=== PATIENT | male | born 1950 | race Caucasian/White ===

== ENCOUNTER 2016-05-25 00:40 | Observation (INO) | payer BC ==
[~2016-05-25] VITALS: Ht 175.3 cm; Wt 108.6 kg
[2016-05-25 01:24] LABS: BASOPHILS % (AUTO) 0 % (0-2); EOSINOPHILS # (AUTO) 0.3 10^3uL; EOSINOPHILS % (AUTO) 2 % (0-4); MEAN CORPUSCULAR HEMOGLOBIN 29.2 PG (26.0-34.0); MEAN CORPUSCULAR VOLUME 86 FL (80-100); MEAN PLATELET VOLUME 9.9 FL (6.0-9.5); MONOCYTES # (AUTO) 1.4 X10^3; MONOCYTES % (AUTO) 11 % (3-11); NEUTROPHILS # (AUTO) 5.5 X10^3; NEUTROPHILS % (AUTO) 45 % (51-67); PLATELET COUNT 276 10^3uL (150-450); WHITE BLOOD COUNT 12.23 10^3uL (4.0-11.0)
[2016-05-25 01:40] LABS: ALKALINE PHOSPHATASE 110 U/L (38-126); ANION GAP 19.2 MEQ/L (3-15); BUN/CREATININE RATIO 24 (10-20); CALCULATED IONIZED CALCIUM 4.1 mg/dL (3.8-4.6); TOTAL PROTEIN 7.1 g/dL (6.4-8.5)
[2016-05-25] MEDS ORDERED: morphine INJ 4 MG/ML 1 ML SYRINGE IV PRN (02:55)
[2016-05-25] MEDS ORDERED: ONDANSETRON 2 MG/ML (Z0FRAN) 2 ML VIAL IV PRN (02:55)
[2016-05-25] MEDS ORDERED: NS W/KCL 20 MEQ/L 1,000 ML IV SCH (02:55)
[2016-05-25] MEDS ORDERED: ACETAMINOPHEN 325 MG TAB (TYLENOL) PO PRN (02:55)
--- NOTE | 2016-05-25 03:15 | NUR ---
Pt arrives to 306 via cart from ED. Ambulates to weight chair and bed with stand-by assist. Denies feeling dizzy or lightheaded. Denies pain. BP 136/92. Resp even and non labored on RA. See admission assessment for further details.
[2016-05-25 03:29] VITALS: BP 136/92
[2016-05-25 03:31] VITALS: BP 136/92
[2016-05-25] MEDS ORDERED: MTP50T PO (03:44)
[2016-05-25] MEDS ORDERED: HCT25T PO (03:44)
[2016-05-25] MEDS ORDERED: ASPI-860 PO (03:44)
[2016-05-25] MEDS ORDERED: LOSA100T8 PO (03:44)
--- NOTE | 2016-05-25 04:18 | NUR ---
Pt has small, loose, sravani red bloody stool.
--- NOTE | 2016-05-25 04:34 | History and Physical (E) ---
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 Approximately 10 days ago the patient had a colonoscopy with at least 2 if not 3 polyps removed. The patient had a normal bowel movement this morning. The patient says had at least one if not 2 diarrheal bright red blood per rectum stools. The patient had onset of lightheadedness as if he were to pass out. EMS was activated and the patient was transferred to the closest ER. In the emergency department the patients vital signs demonstrated a systolic blood pressure 103. The patients Hemoccult was positive from below. The patient was not significant anemic at this time. Initial hemoglobin was 14.8, repeat was 13.9. At this time the patient is to be admitted for observation regarding a probable lower GI bleed from a previous polypectomy. The timeframe we favor this as the most likely source of bleeding. Past medical history: Hypertension, colonic polyps Past surgical history: Permanent pacemaker approximately 14 years ago, polypectomy Medications: Unknown at this time Allergies: Unknown at this time Social history: Lives in [place], is , no tobacco or alcohol, over the road development professional Family history: Mother has colon cancer Review of systems: The patient denies headache, denies change in vision, denies difficulty swallowing, denies neck or jaw pain, denies any chest pain, denies PND, denies orthopnea, denies cough, is not short of breath, has mild abdominal pain, lower quadrants bilaterally, no nausea or vomiting, blood in stools as noted above, no focal neurological deficits, no skin rashes, 10 point review of systems is otherwise negative except for described above Physical examination: Vital signs: Temperature 97.8, pulse 63, respiratory rate 18, blood pressure 139 /92 Well-developed well-nourished white male hard of hearing, mild distress Sclerae nonicteric not pale, extraocular muscles are intact Neck is supple with easy range of motion Lungs are diminished without wheezes or rhonchi Heart is regular rate and rhythm no murmur Abdomen is mildly obese, bowel sounds are present, nontender to palpation per nursing Extremities without edema Neurologic no focal deficits Lab: White count 12.3, hemoglobin 14.8, repeat 13.9, platelet counts 276,000, INR is 1, sodium 145, potassium 3.2, serum bicarbonate 25, BNP 24, creatinine 1, glucose is 172 Impression/plan 1. Lower GI bleed acute present on admission: Slightly from previous polypectomy. Its about the right timeframe. Differential diagnosis includes diverticular bleed, colon cancer, AV malformation, polyp bleed, internal hemorrhoids. Obviously the most likely cause is polyp bleed. IV fluids, repeat hemoglobin in the morning, no indication for an acute surgical consult yet, if bleeding were to worsen would consider a bleeding scan and/or surgical consultation. If bleeding were to continue, would need to get records [place] to better define the exact procedure performed. 2. Hypertension chronic present on admission: Hold antihypertensive medicines at this time 3. Hypokalemia acute present admission: Secondary to GI loss, replace and recheck 4. Hyperglycemia acute present admission: Consider this an acute reaction. Repeat chemistries in the morning. If continued elevated consider checking an A1c 5. DVT prophylaxis: SCD 6. Gastric prophylaxis: Proton pump inhibitor This patients an observation admission Allergies/Home Medications Allergies: Coded Allergies: No Known Drug Allergies (Unverified , 05/25/16) Reported Home Medications Scheduled Aspirin (Aspirin) 81 MG PO DAILY (Reported) Losartan/Hydrochlorothiazide (Losartan-HCTZ 100-25 mg Tab) 1 TAB PO DAILY ( Reported) Metoprolol Tartrate (Metoprolol Tartrate) 50 BID (Reported) Discontinued Medications Hydrochlorothiazide (Hctz) 25 MG PO DAILY (Reported) Discontinued Reason: Unknown Losartan Potassium (Losartan Potassium) 100 MG PO DAILY (Reported) Discontinued Reason: Unknown Copies to: End of Report . FRANCISCO BUTLER MD May 25, 2016 04:34 NEFTALI JOSE DO May 25, 2016 13:33
--- NOTE | 2016-05-25 04:40 | NUR ---
Dr. Ramon at bedside performing rectal exam with this nurse present.
[2016-05-25 06:03] LABS: BASOPHILS % (AUTO) 0 % (0-2); EOSINOPHILS % (AUTO) 0 % (0-4); LYMPHOCYTES # (AUTO) 1.2 X10^3; MEAN CORPUSCULAR HEMOGLOBIN 29.3 PG (26.0-34.0); MEAN CORPUSCULAR HGB CONC 33.6 g/dL (31.0-37.0); MEAN CORPUSCULAR VOLUME 87 FL (80-100); MEAN PLATELET VOLUME 9.8 FL (6.0-9.5); MONOCYTES # (AUTO) 0.5 X10^3; MONOCYTES % (AUTO) 5 % (3-11); NEUTROPHILS # (AUTO) 8.2 X10^3; NEUTROPHILS % (AUTO) 83 % (51-67); PLATELET COUNT 200 10^3uL (150-450); WHITE BLOOD COUNT 9.88 10^3uL (4.0-11.0)
[2016-05-25] MEDS: PANTOPRAZOLE 40 MG (PROTONIX) TAB PO SCH (06:09)
--- NOTE | 2016-05-25 06:11 | NUR ---
No further BMs, pt resting quietly. Denies pain.
[2016-05-25 06:26] LABS: ANION GAP 16.8 MEQ/L (3-15)
[2016-05-25 07:22] VITALS: BP 117/76
[2016-05-25] MEDS ORDERED: NS FLUSH 3 ML PRN IV (08:50)
[2016-05-25] MEDS ORDERED: NS FLUSH 10 ML PRN IV (08:50)
[2016-05-25] MEDS: NS FLUSH 3 ML DAILY IV SCH (09:00)
--- NOTE | 2016-05-25 09:02 | Progress Note (E) ---
Progress Note S: Awake and alert - feels ok this am, hungry- tolerates Clear liquid diet, His daughter will be checking with his doctor in [place] this am about the colonoscopy he had over a week ago and about the colon polyp biopsies, no abdominal pain no vomiting. No report of blood in stools since 4 am, hemoglobin this am 13.3 O: Vital Signs Date Time Temp Pulse Resp B/P Pulse Ox O2 Delivery O2 Flow Rate FiO2 05/25/16 07:22 97.9 54 18 117/76 95 Room air 05/25/16 03:10 1 I & O Past 24 hrs 05/25/16 07:00 Intake Total 369 ml Output Total 200 ml Balance 169 ml Intake Oral 100 ml IV Total 269 ml Output Urine Total 200 ml # Bowel Movements 2 Awake and alert in NAD, speech clear, in good spirits HEENT- PERRLA, EOMI Neck Supple Lungs are clear bilaterally, no wheezes Heart is regular rate and rhythm no murmur Abdomen is mildly obese, bowel sounds are present, nontender to palpation Extremities without edema Neurologic no focal deficits CBC BMP Last 24 Hrs 05/25/16 00:00 05/25/16 02:30 05/25/16 05:40 Laboratory Results Past 24 Hrs 05/25/16 00:00: Alanine Aminotransferase (ALT/SGPT) 50, Albumin 4.0, Albumin/Globulin Ratio 1.290, Alkaline Phosphatase 110, Anion Gap 19.2, Aspartate Amino Transf (AST/ SGOT) 24, BUN/Creatinine Ratio 24, Basophils # (Auto) 0.1, Basophils (%) (Auto) 0, Blood Urea Nitrogen 24, C-Reactive Protein < 0.50, Calcium Level 9.2, Calcium /Ionized Calcium Ratio 4.1, Calculated Osmolality 289, Carbon Dioxide Level 25, Chloride Level 104, Creatinine 1.02, Eosinophils # (Auto) 0.3, Eosinophils (%) ( Auto) 2, Estimat Glomerular Filtration Rate 89.0, Estimated GFR (Non- 73.5, Glucose Level 172, Hematocrit 43.50, Hemoglobin 14.8, Lymphocytes # (Auto) 5.0, Lymphocytes (%) (Auto) 41, Mean Corpuscular Hemoglobin 29.2, Mean Corpuscular Hemoglobin Concent 34.0, Mean Corpuscular Volume 86, Mean Platelet Volume 9.9, Monocytes # (Auto) 1.4, Monocytes (%) (Auto ) 11, Neutrophils # (Auto) 5.5, Neutrophils (%) (Auto) 45, Platelet Count 276, Potassium Level 3.2, Prothromb Time International Ratio 1.0, Prothrombin Time 11.6, Red Blood Count 5.07, Red Cell Distribution Width 13.5, Sodium Level 145, Total Bilirubin 0.5, Total Protein 7.1, White Blood Count 12.23 05/25/16 02:30: Hematocrit 41.80, Hemoglobin 13.9 05/25/16 02:40: Stool Occult Blood Positive 05/25/16 05:40: Anion Gap 16.8, BUN/Creatinine Ratio 31, Basophils # (Auto) 0.0, Basophils (%) ( Auto) 0, Blood Urea Nitrogen 26, Calcium Level 8.9, Carbon Dioxide Level 27, Chloride Level 107, Creatinine 0.85, Eosinophils # (Auto) 0.0, Eosinophils (%) ( Auto) 0, Estimat Glomerular Filtration Rate 109.8, Estimated GFR (Non- 90.8, Glucose Level 154, Hematocrit 39.60, Hemoglobin 13.3, Lymphocytes # (Auto) 1.2, Lymphocytes (%) (Auto) 12, Mean Corpuscular Hemoglobin 29.3, Mean Corpuscular Hemoglobin Concent 33.6, Mean Corpuscular Volume 87, Mean Platelet Volume 9.8, Monocytes # (Auto) 0.5, Monocytes (%) (Auto ) 5, Neutrophils # (Auto) 8.2, Neutrophils (%) (Auto) 83, Platelet Count 200, Potassium Level 3.8, Red Blood Count 4.54, Red Cell Distribution Width 13.5, Sodium Level 146, White Blood Count 9.88 Impression/plan 1.Lower GI bleed acute present on admission: previous polypectomy about a week ago. ? Internal hemorrhoids? Diverticular? HGB is stable at 13.3 2.Hypertension - was hypotensive on admit- his meds are on hold- Metoprolol , Losartan, HCTZ 3.Hypokalemia- improved with IV fluids. likely due to HCTZ- which in now on hold 4.Hyperglycemia acute present admission: Consider this an acute reaction. A1C pending this am. 5.DVT prophylaxis: SCD 6.Gastric prophylaxis: Proton pump inhibitor Celi Doshi PROGRAM OFFICER May 25, 2016 09:02 A1c 5. DVT prophylaxis: SCD 6. Gastric prophylaxis: Proton pump inhibitor Celi Doshi PROGRAM OFFICER May 25, 2016 09:02
[2016-05-25 11:10] VITALS: BP 132/91
[2016-05-25] MEDS ORDERED: LOSA1TAB70 PO (13:26)
[2016-05-25] MEDS ORDERED: DILT300T PO (13:28)
[2016-05-25] MEDS ORDERED: TADA20TA PO (13:28)
[2016-05-25] MEDS ORDERED: morphine INJ 2 MG/ML 1 ML SYRINGE IV PRN (13:40)
[2016-05-25 13:49] LABS: BASOPHILS % (AUTO) 0 % (0-2); EOSINOPHILS # (AUTO) 0.1 10^3uL; EOSINOPHILS % (AUTO) 1 % (0-4); LYMPHOCYTES # (AUTO) 1.9 X10^3; MEAN CORPUSCULAR HEMOGLOBIN 29.5 PG (26.0-34.0); MEAN CORPUSCULAR HGB CONC 33.7 g/dL (31.0-37.0); MEAN CORPUSCULAR VOLUME 87 FL (80-100); MEAN PLATELET VOLUME 9.6 FL (6.0-9.5); MONOCYTES # (AUTO) 0.5 X10^3; MONOCYTES % (AUTO) 7 % (3-11); NEUTROPHILS # (AUTO) 4.7 X10^3; NEUTROPHILS % (AUTO) 66 % (51-67); PLATELET COUNT 176 10^3uL (150-450); WHITE BLOOD COUNT 7.13 10^3uL (4.0-11.0)
[2016-05-25] MEDS ORDERED: MULT1TAB69 PO (15:06)
[2016-05-25] MEDS ORDERED: OMEG10005 PO (15:07)
[2016-05-25] MEDS ORDERED: UBID50TA3 PO (15:08)
[2016-05-25] MEDS ORDERED: CINN1POW MC (15:09)
[2016-05-25 15:41] VITALS: BP 170/90
[2016-05-25] MEDS: DILTIAZEM CD 300 MG PO SCH (16:04)
[2016-05-25] MEDS ORDERED: UBID100C27 PO (16:12)
[2016-05-25] MEDS ORDERED: CINN500C14 PO (16:12)
--- NOTE | 2016-05-25 16:14 | NUR ---
MED REC COMPLETE--current med list obtained from external med history application, list from hospitalization at [facility] on 05/13/16, and patient interview. Completed by Booker Cid, Pharm. D. Candidate, 2017.
--- NOTE | 2016-05-25 18:26 | NUR ---
Uneventful shift. Pt has denied needs this shift. No BMs or blood in stool or undergarments noted. Skin warm, dry, intact. Resprs nonlabored, even on RA. Up ad daisy in room. Pt denies needs.
--- NOTE | 2016-05-25 19:20 | NUR ---
Pt is resting in bed watching tv, alert and oriented x 4, Resp are even and nonlabored, LCTAB, HRRR, BS are active x 4 quadrants. Denies bloody stools during the day, and denies nausea or vomiting at this time. SL is patent, no redness, swelling, or s/s of infection noted at this time. Denies pain or discomfort at this time. Call light is in reach, Will continue to monitor.
[2016-05-25 19:45] VITALS: BP 162/92
[2016-05-25 19:47] LABS: BASOPHILS % (AUTO) 0 % (0-2); EOSINOPHILS # (AUTO) 0.2 10^3uL; EOSINOPHILS % (AUTO) 3 % (0-4); LYMPHOCYTES # (AUTO) 2.1 X10^3; MEAN CORPUSCULAR HEMOGLOBIN 29.6 PG (26.0-34.0); MEAN CORPUSCULAR HGB CONC 33.4 g/dL (31.0-37.0); MEAN CORPUSCULAR VOLUME 89 FL (80-100); MEAN PLATELET VOLUME 10.1 FL (6.0-9.5); MONOCYTES # (AUTO) 0.4 X10^3; MONOCYTES % (AUTO) 6 % (3-11); NEUTROPHILS % (AUTO) 60 % (51-67); PLATELET COUNT 167 10^3uL (150-450); WHITE BLOOD COUNT 6.72 10^3uL (4.0-11.0)
[2016-05-26 00:11] VITALS: BP 130/82
[2016-05-26 04:23] VITALS: BP 113/84
--- NOTE | 2016-05-26 05:01 | NUR ---
Pt has been resting in bed asleep most of this shift, did get up and ambulate x1 at midnight. Has denied pain or needs during this shift, call light is in reach, will continue to monitor.
[2016-05-26] MEDS: PANTOPRAZOLE 40 MG (PROTONIX) TAB PO SCH (06:04)
[2016-05-26 07:30] VITALS: BP 152/92
--- NOTE | 2016-05-26 07:35 | NUR ---
Patient sitting up in bed conversing with family upon shift assessment. Denies abdominal pain, cramping, nausea, SOA, or further stools. HR RRR. Lung sounds CTAB. BP elevated at 152/93. Abdomen soft and non-tender to touch. Updated on plan of care. Call light in reach.
[2016-05-26 08:10] LABS: BASOPHILS % (AUTO) 0 % (0-2); EOSINOPHILS # (AUTO) 0.2 10^3uL; EOSINOPHILS % (AUTO) 3 % (0-4); LYMPHOCYTES # (AUTO) 1.8 X10^3; MEAN CORPUSCULAR HEMOGLOBIN 29.7 PG (26.0-34.0); MEAN CORPUSCULAR VOLUME 87 FL (80-100); MEAN PLATELET VOLUME 9.6 FL (6.0-9.5); MONOCYTES # (AUTO) 0.4 X10^3; MONOCYTES % (AUTO) 8 % (3-11); NEUTROPHILS # (AUTO) 3.2 X10^3; NEUTROPHILS % (AUTO) 57 % (51-67); PLATELET COUNT 155 10^3uL (150-450); WHITE BLOOD COUNT 5.61 10^3uL (4.0-11.0)
[2016-05-26] MEDS: DILTIAZEM CD 300 MG PO SCH (08:22)
[2016-05-26] MEDS: NS FLUSH 3 ML DAILY IV SCH (08:22)
--- NOTE | 2016-05-26 10:54 | Discharge Instructions (E) ---
Discharge Instructions Instructions Do take your prescribed medicines every day. Drink plenty of water daily.Please foloow up with your PCP and your surgeon in the next 7-10 days. Activity Instructions activity as tolerated. Discharge Diet: Regular NEFTALI JOSE DO May 26, 2016 10:54
--- NOTE | 2016-05-26 11:30 | Discharge Summary (E FT) ---
Discharge Summary (E FT) Admit Date May 25, 2016 at 02:50 Discharge Date Admitting Provider Neftali Walton D.O. Primary Care Provider out of state Attending Provider Neftali Walton D.O. Consulting Provider Hospital Course Summary Mr Prado was admitted to our hospital through the ER due to a + hemoccult on his stool and some blood in the stool after a BM. He had had some colonic polyps excised or burned and destroyed a week or so earlier and there was a question as to whether or not they were bleeding. patient had 4 stable cbc results showing that his H and H was not dropping at all. Therefore we concluded and told him the suspected GI bleed was most likely from internal hemorroids.He is being discharged on all his home meds and no new ones. CBC BMP Last 24 Hrs 05/25/16 13:40 05/25/16 17:30 Laboratory Results Past 24 Hrs 05/25/16 13:40: Basophils # (Auto) 0.0, Basophils (%) (Auto) 0, Eosinophils # (Auto) 0.1, Eosinophils (%) (Auto) 1, Hematocrit 38.30, Hemoglobin 12.9, Lymphocytes # (Auto ) 1.9, Lymphocytes (%) (Auto) 26, Mean Corpuscular Hemoglobin 29.5, Mean Corpuscular Hemoglobin Concent 33.7, Mean Corpuscular Volume 87, Mean Platelet Volume 9.6, Monocytes # (Auto) 0.5, Monocytes (%) (Auto) 7, Neutrophils # (Auto ) 4.7, Neutrophils (%) (Auto) 66, Platelet Count 176, Red Blood Count 4.38, Red Cell Distribution Width 13.7, White Blood Count 7.13 05/25/16 17:30: Hematocrit 37.70, Hemoglobin 12.9 05/25/16 19:30: Basophils # (Auto) 0.0, Basophils (%) (Auto) 0, Eosinophils # (Auto) 0.2, Eosinophils (%) (Auto) 3, Hematocrit 37.70, Hemoglobin 12.6, Lymphocytes # (Auto ) 2.1, Lymphocytes (%) (Auto) 31, Mean Corpuscular Hemoglobin 29.6, Mean Corpuscular Hemoglobin Concent 33.4, Mean Corpuscular Volume 89, Mean Platelet Volume 10.1, Monocytes # (Auto) 0.4, Monocytes (%) (Auto) 6, Neutrophils # (Auto ) 4.0, Neutrophils (%) (Auto) 60, Platelet Count 167, Red Blood Count 4.25, Red Cell Distribution Width 13.5, White Blood Count 6.72 05/26/16 07:50: Basophils # (Auto) 0.0, Basophils (%) (Auto) 0, Eosinophils # (Auto) 0.2, Eosinophils (%) (Auto) 3, Hematocrit 37.30, Hemoglobin 12.7, Lymphocytes # (Auto ) 1.8, Lymphocytes (%) (Auto) 31, Mean Corpuscular Hemoglobin 29.7, Mean Corpuscular Hemoglobin Concent 34.0, Mean Corpuscular Volume 87, Mean Platelet Volume 9.6, Monocytes # (Auto) 0.4, Monocytes (%) (Auto) 8, Neutrophils # (Auto ) 3.2, Neutrophils (%) (Auto) 57, Platelet Count 155, Red Blood Count 4.27, Red Cell Distribution Width 13.5, White Blood Count 5.61 05/25/16 19:30 05/26/16 07:50 Discharge Disposition Discharge to home. Continued Medications: Aspirin (Aspirin) 81 Mg Tablet.dr 81 MG PO DAILY TAB Cinnamon Bark (Cinnamon) 500 Mg Capsule 500 MG PO BID CAP Diltiazem HCl (Cardizem LA) 300 Mg Tab.er.24h 300 MG PO DAILY #90 Losartan/Hydrochlorothiazide (Losartan-HCTZ 100-25 mg Tab) 1 Each Tablet 1 TAB PO DAILY #90 Metoprolol Tartrate (Metoprolol Tartrate) 50 Mg Tablet 50 MG PO BID #180 Multivitamin (Multivitamins) 1 Each Tablet 1 EACH PO DAILY TAB [place]-3 Fatty Acids ([place]-3) 1,000 Mg Capsule 1000 MG PO BID CAP Tadalafil (Cialis) 20 Mg Tablet 20 MG PO UD #6 Ubidecarenone (Co Q10) 100 Mg Capsule 100 MG PO BID CAP Follow up Instructions Do take your prescribed medicines every day. Drink plenty of water daily.Please foloow up with your PCP and your surgeon in the next 7-10 days. Copies to: End of Report . NEFTALI WALTON DO May 26, 2016 11:30
--- NOTE | 2016-05-26 11:38 | NUR ---
No further bloody stools. Discharge order received. IV discontinued with catheter intact. No redness or swelling noted at insertion site. Instructions provided to patient and with verbal and written understanding expressed.
[2016-05-26 11:46] VITALS: BP 144/88
--- NOTE | 2016-05-26 12:00 | NUR ---
Patient dismissed ambulatory to private car accompanied by TOBACCO DIPPER, , and daughter. No further needs.
== END 2016-05-26 12:00 | disposition home or self-care (01) ==
LOC: ED 00:41 → MED/SURG 02:50
PROVIDERS: ADMIT Emergency Medicine; ATTEND Emergency Medicine
DX: K92.1 Melena (principal); E87.6 Hypokalemia; R73.9 Hyperglycemia, unspecified; I10 Essential (primary) hypertension; Z79.82 Long term (current) use of aspirin; Z86.010 Personal history of colon polyps; Z95.0 Presence of cardiac pacemaker
CPT/HCPCS: 36415; 80048; 80053; 83036; 85014; 85018; 85025; 85610; 86140; 86850; 86900; 86901; 93005; 93010; 96365; 96366; 99218; 99284; 99285

== ENCOUNTER → 2016-05-25 | Outpatient (CLI) | payer BC ==
[~2016-05-25] MED LIST: ASPI-860 PO; CINN1POW MC; CINN500C14 PO; DILT300T PO; HCT25T PO; LOSA100T8 PO; LOSA1TAB70 PO; MTP50T PO; MULT1TAB69 PO; OMEG10005 PO; TADA20TA PO; UBID100C27 PO; UBID50TA3 PO
== END ==
LOC: EMS 00:10
PROVIDERS: ATTEND Family Medicine
DX: R55 Syncope and collapse (principal); R53.1 Weakness; K92.1 Melena